=== PATIENT | male | born 1995 | race Caucasian/White ===

== ENCOUNTER 2023-01-20 11:14 | Inpatient (IN) | payer OTHER ==
[~2023-01-20] VITALS: Ht 182.9 cm; Wt 79.5 kg
[2023-01-20] MEDS ORDERED: RISP2TAB86 PO (11:28)
[2023-01-20 12:07] LABS: BASOPHILS % (AUTO) 0.1 % (0.0-2.0); EOSINOPHILS % (AUTO) 0 % (1.0-6.0); HEMATOCRIT 44.5 % (41-53); HEMOGLOBIN 15.2 g/dL (13.5-17.5); LYMPHOCYTES # (AUTO) 0.9 K/uL (1.0-4.8); LYMPHOCYTES % (AUTO) 6.3 % (22.0-44.0); MEAN CORPUSCULAR HEMOGLOBIN 30.8 pg (26.0-34.0); MEAN CORPUSCULAR HGB CONC 34.2 G/dL (31.0-37.0); MEAN CORPUSCULAR VOLUME 90 fL (80-100); MONOCYTES % (AUTO) 7.1 % (2.0-9.0); NEUTROPHILS # (AUTO) 11.9 K/uL (1.8-7.7); PLATELET COUNT (AUTO) 232 K/uL (150-450); RED BLOOD CELL COUNT(AUTO) 4.95 MIL/uL (4.50-5.90); RED CELL DISTRIBUTION WIDTH 12.8 % (11.5-14.5); WHITE BLOOD COUNT (AUTO) 13.8 K/uL (4.5-11.0)
[2023-01-20 12:09] LABS: ANION GAP 19 mmol/L (8-16); CALCIUM, TOTAL 10.5 mg/dL (8.8-10.5); CARBON DIOXIDE 25 mmol/L (22-29); CHLORIDE 107 mmol/L (98-107); CREATININE 1.41 mg/dL (0.60-1.30); GLOMERULAR FILTR. RATE CALC 59 mL/min (>60); GLUCOSE,RANDOM 121 mg/dL (70-110); POTASSIUM 3.7 mmol/L (3.5-5.1); SODIUM SERUM 151 mmol/L (136-145); UREA NITROGEN, BLOOD 13 mg/dL (7-18)
[2023-01-20 12:12] LABS: ALCOHOL, BLOOD (SERUM) < 3 mg/dL (0-10)
[2023-01-20 12:16] LABS: NEUTROPHILS % (AUTO) 86.5 % (40.0-70.0)
[2023-01-20 12:23] LABS: ALANINE AMINOTRANSFERASE 8 U/L (12-78); ALBUMIN 4.8 g/dL (3.4-5.0); ALKALINE PHOSPHATASE 57 U/L (46-116); ASPARTATE AMINOTRANSFERASE 28 U/L (15-37); BILIRUBIN,TOTAL 1.3 mg/dL (0.1-1.0); THYROID STIMULATING HORMONE 1.21 uIU/mL (0.36-3.74); TOTAL PROTEIN, SERUM 8.5 g/dL (6.4-8.2)
[2023-01-20 12:37] LABS: COVID AG,FIA SOURCE NASOPHARYNGEAL
[2023-01-20 12:57] LABS: SARS-COV2 (COVID) ANTIGEN,FIA Negative (Negative)
[2023-01-20 16:05] LABS: APPEARANCE,URINE CLEAR (CLEAR); BILIRUBIN,URINE NEGATIVE (NEGATIVE); COLOR,URINE YELLOW (YELLOW); GLUCOSE, URINE (UA) TRACE mg/dL (NEGATIVE); LEUKOCYTE ESTERASE ,URINE NEGATIVE (NEGATIVE); NITRATE,URINE NEGATIVE (NEGATIVE); OCCULT BLOOD,URINE SMALL (NEGATIVE); PH,URINE 6.5 (5.0-8.0); PH,URINE DRUG SCREEN 6.5 (5.0-8.0); PROTEIN,URINE 100-200,SEE CONFIRM mg/dL (NEGATIVE); SPECIFIC GRAVITIY, URINE 1.021 (1.003-1.030); UROBILINOGEN,URINE <=1.0 mg/dL (<=1.0)
[2023-01-20 16:12] LABS: ALCOHOL, URINE DRUG SCREEN NEGATIVE (NEGATIVE); AMPHET/METH SCREEN,URINE POSITIVE (NEGATIVE); BARBITURATE SCREEN, URINE NEGATIVE (NEGATIVE); BENZODIAZEPINES SCREEN,URINE NEGATIVE (NEGATIVE); CANNABINOID SCREEN,URINE POSITIVE (NEGATIVE); COCAINE SCREEN,URINE NEGATIVE (NEGATIVE); METHADONE SCREEN, URINE NEGATIVE (NEGATIVE); OPIATE SCREEN,URINE NEGATIVE (NEGATIVE); PHENCYCLIDINE SCREEN,URINE NEGATIVE (NEGATIVE)
[2023-01-20 16:15] LABS: BACTERIA,URINE Few /HPF (None Seen); COARSE GRANULAR CASTS,URINE 0-2 /LPF (None Seen); SQUAMOUS EPITHELIAL CELL,UR Rare /LPF (None Seen); SULFOSALICYLIC ACID,URINE 2+ (Negative)
[2023-01-20] MEDS ORDERED: SODIUM CHLORIDE 0.9% 1,000 ML IV ONE (17:00)
[2023-01-20] MEDS ORDERED: ZOLPIDEM TARTRATE 5 MG TABLET PO PRN (17:15)
[2023-01-20] MEDS ORDERED: ONDANSETRON HCL 4 MG/2 ML VIAL IVP PRN (17:15)
[2023-01-20] MEDS ORDERED: MAGNESIUM HYDROXIDE SUSPENSION 30 ML UDCUP PO PRN (17:15)
[2023-01-20] MEDS ORDERED: ACETAMINOPHEN 325 MG TABLET PO PRN (17:15)
[2023-01-20] MEDS ORDERED: SODIUM CHLORIDE 0.45% 1,000 ML IV ONE (17:15)
[2023-01-20] MEDS ORDERED: LORazepam 2 MG/ML VIAL IVP PRN (17:15)
[2023-01-20 17:27] LABS: CREATINE KINASE, TOTAL ONLY 652 U/L (39-308)
[2023-01-21 08:47] VITALS: BP 106/60; PULSE 87; RESP 19; TEMP 98.4
[2023-01-21] MEDS ORDERED: SODIUM CHLORIDE 0.45% 1,000 ML IV ONE (09:00)
[2023-01-21] MEDS: FAMOTIDINE 20 MG TABLET PO SCH (09:05)
[2023-01-21 09:47] LABS: BASOPHILS % (AUTO) 0.4 % (0.0-2.0); EOSINOPHILS % (AUTO) 0.6 % (1.0-6.0); HEMOGLOBIN 14.8 g/dL (13.5-17.5); LYMPHOCYTES # (AUTO) 2.1 K/uL (1.0-4.8); LYMPHOCYTES % (AUTO) 27.2 % (22.0-44.0); MEAN CORPUSCULAR HEMOGLOBIN 31.1 pg (26.0-34.0); MEAN CORPUSCULAR HGB CONC 34.4 G/dL (31.0-37.0); MEAN CORPUSCULAR VOLUME 90 fL (80-100); MONOCYTES # (AUTO) 0.8 K/uL (0.1-1.0); MONOCYTES % (AUTO) 10.3 % (2.0-9.0); NEUTROPHILS # (AUTO) 4.7 K/uL (1.8-7.7); NEUTROPHILS % (AUTO) 61.5 % (40.0-70.0); PLATELET COUNT (AUTO) 190 K/uL (150-450); RED BLOOD CELL COUNT(AUTO) 4.77 MIL/uL (4.50-5.90); RED CELL DISTRIBUTION WIDTH 12.9 % (11.5-14.5); WHITE BLOOD COUNT (AUTO) 7.7 K/uL (4.5-11.0)
[2023-01-21 09:57] LABS: ANION GAP 10 mmol/L (8-16); CARBON DIOXIDE 27 mmol/L (22-29); CHLORIDE 104 mmol/L (98-107); CREATININE 0.95 mg/dL (0.60-1.30); GLOMERULAR FILTR. RATE CALC > 60 mL/min (>60); GLUCOSE,RANDOM 91 mg/dL (70-110); POTASSIUM 3.4 mmol/L (3.5-5.1); SODIUM SERUM 141 mmol/L (136-145); UREA NITROGEN, BLOOD 13 mg/dL (7-18)
[2023-01-21 16:01] VITALS: BP 131/97; PULSE 114; RESP 19; TEMP 98.2
[2023-01-21 19:32] VITALS: BP 132/83; PULSE 78; RESP 18; TEMP 99.4
[2023-01-22 04:30] VITALS: BP 116/75; PULSE 68; RESP 18; TEMP 97.7
[2023-01-22 08:04] VITALS: BP 122/76; PULSE 70; RESP 18; TEMP 97.9
[2023-01-22] MEDS: FAMOTIDINE 20 MG TABLET PO SCH (10:11)
[2023-01-22 15:06] VITALS: BP 115/67; PULSE 62; RESP 18; TEMP 98.4
[2023-01-22] MEDS ORDERED: OLAN5TAB94 PO (18:06)
[2023-01-22] MEDS ORDERED: OLANZapine 5 MG RAPDIS TABLET PO PRN (18:15)
[2023-01-22 19:45] VITALS: BP 114/75; PULSE 69; RESP 20; TEMP 98.2
[2023-01-22] MEDS: OLANZapine 5 MG RAPDIS TABLET PO SCH (23:28)
[2023-01-23 04:45] VITALS: BP 110/82; PULSE 56; RESP 18; TEMP 97.1
[2023-01-23] MEDS: FAMOTIDINE 20 MG TABLET PO SCH (08:15)
[2023-01-23 15:55] VITALS: BP 118/84; PULSE 64; RESP 18; TEMP 97.4
[2023-01-23] MEDS: OLANZapine 5 MG RAPDIS TABLET PO SCH (19:38)
[2023-01-23 19:53] VITALS: BP 102/60; PULSE 57; RESP 18; TEMP 97.6
[2023-01-24 03:38] VITALS: BP 102/60; PULSE 51; RESP 18; TEMP 97.4
[2023-01-24] MEDS: FAMOTIDINE 20 MG TABLET PO SCH (08:11)
[2023-01-24 08:43] VITALS: BP 103/65; PULSE 50; RESP 18; TEMP 97.4
[2023-01-24] MEDS ORDERED: SODIUM CHLORIDE 0.9% 500 ML IV ONE (16:00)
== END 2023-01-24 15:23 | DRG 426 ==
LOC: EMS 11:19 → 6S 01-21 06:29
PROVIDERS: ADMIT Internal Medicine; ATTEND Internal Medicine
DX: E87.0 Hyperosmolality and hypernatremia (principal); G92.8 Other toxic encephalopathy; N17.9 Acute kidney failure, unspecified; M62.82 Rhabdomyolysis; R65.10 Systemic inflammatory response syndrome (SIRS) of non-infectious origin without acute organ dysfunction; F20.0 Paranoid schizophrenia; E86.0 Dehydration; Z20.822 Contact with and (suspected) exposure to COVID-19; J44.9 Chronic obstructive pulmonary disease, unspecified; F19.10 Other psychoactive substance abuse, uncomplicated; Z79.899 Other long term (current) drug therapy; Z87.891 Personal history of nicotine dependence; Z91.199 Patient's noncompliance with other medical treatment and regimen due to unspecified reason
CPT/HCPCS: 71045; 80048; 80053; 80307; 81001; 81002; 82550; 84443; 85025; 93005; 99285; G0480; J2060; J7040; 36415-L1; 36415-TC